=== PATIENT | female | born 1970 | race Hispanic/Latino ===

== ENCOUNTER 2017-11-24 13:20 | Emergency (ER) | payer BC, OTHER ==
[2017-11-24] MEDS ORDERED: MAGNESIUM SULFATE 2GM/50ML 2 GM/50 ML BAG IV ONE (13:29)
[2017-11-24] MEDS ORDERED: PROVENTIL IH ONE (13:30)
[2017-11-24] MEDS ORDERED: TYLENOL PO ONE (13:30)
[2017-11-24] MEDS ORDERED: ATROVENT IH ONE (13:30)
--- NOTE | 2017-11-24 13:41 | Emergency Department Report ---
ED Shortness of Breath HPI - General Chief Complaint: Dyspnea/Respdistress Stated Complaint: WHEEZING HX OF ASTHMA Time Seen by Provider: 11/24/17 13:28 Source: patient Mode of arrival: Ambulatory Limitations: No Limitations - History of Present Illness Initial Comments: 47-year-old female with a past medical history asthma presents to the hospital for complaints of shortness breath, cough, wheezing, and fever since last night. Patient has mild asthma that is typically exacerbated by cigarette smoke and respiratory illnesses. Last significant asthma attack was in 2014 and patient is not currently on any consistent asthma treatment. She had a fever 101.8 yesterday there broke with Motrin. She continues to have a nonproductive cough, wheezing, chest tightness, and fever. No previous histories of intubations. - Related Data Home Medications Medication Instructions Recorded Confirmed Last Taken Fluticasone/Vilanterol [Breo 1 each IH 05/27/16 05/27/16 06:30 Ellipta 100-25 Mcg INH] Previous Rx's Medication Instructions Recorded Last Taken Type Albuterol Sulfate [Albuterol 0.63% 0.63 mg IH Q4-6H PRN #90 ml 02/22/16 Unknown Rx NEBS] Benzonatate [Tessalon Perles] 100 mg PO Q8HR #30 capsule 02/22/16 Unknown Rx Ibuprofen [Motrin 800 MG tab] 800 mg PO Q8HR PRN #30 tablet 05/25/16 05/26/16 12 :00 Rx oxyCODONE /ACETAMINOPHEN [Percocet 1 - 2 tab PO Q6HR PRN #20 tablet 05/25/1610/01 09:10 Rx 5/325] ALBUTEROL Inhaler [ProAir HFA 1 puff IH TID PRN #1 inha 11/24/17 Unknown Rx Inhaler] ALBUTEROL NEB's [Proventil 0.083% 2.5 mg IH TID PRN #1 box 11/24/17 Unknown Rx NEBS] Azithromycin [Zithromax Z-JORDYN] 1 dose PO DAILY 5 Days day 11/24/17 Unknown Rx Prednisone [predniSONE 10 mg 10 mg PO .TAPER #1 tab.ds.pk 11/24/17 Unknown Rx (6-Day Pack, 21 Tabs)] guaiFENesin/CODEINE [Robitussin AC] 10 ml PO Q6HR PRN #20 udc 11/24/17 Unknown Rx Allergies Allergy/AdvReac Type Severity Reaction Status Date / Time No Known Allergies Allergy Verified 02/22/16 10:49 ED Review of Systems ROS: Stated complaint: WHEEZING HX OF ASTHMA Other details as noted in HPI Comment: All other systems reviewed and negative Other: Constitutional: + Fever Eyes: No eye pain visual changes or discharge ENT: No ear pain or throat pain Neck: Denies pain Respiratory: as per hpi Cardiovascular: Denies chest pain, GI: Denies abdominal pain, nausea, vomiting, diarrhea : Denies dysuria Musculoskeletal: Denies back pain. Chronic leg edema Skin: Denies rash, lesions, erythema Neurologic: Denies headache, numbness, weakness Psychiatric: Denies suicidal ideation, hallucinations ED Past Medical Hx - Past Medical History Hx Congestive Heart Failure: No Hx Diabetes: No Hx Asthma: Yes Hx COPD: No Hx HIV: No Additional medical history: Vaginal delivery x 3 - Surgical History Additional Surgical History: Tubaligation - Social History Smoking Status: Never Smoker Substance Use Type: None - Medications Home Medications: Home Medications Medication Instructions Recorded Confirmed Last Taken Type Albuterol Sulfate [Albuterol 0.63% 0.63 mg IH Q4-6H PRN #90 ml 02/22/16 Unknown Rx NEBS] Benzonatate [Tessalon Perles] 100 mg PO Q8HR #30 capsule 02/22/16 Unknown Rx Ibuprofen [Motrin 800 MG tab] 800 mg PO Q8HR PRN #30 tablet 05/25/16 05/26/16 12:00 Rx oxyCODONE /ACETAMINOPHEN [Percocet 1 - 2 tab PO Q6HR PRN #20 tablet 05/25/16 09:10 Rx 5/325] Fluticasone/Vilanterol [Breo 1 each IH 05/27/16 05/27/16 06:30 History Ellipta 100-25 Mcg INH] ALBUTEROL Inhaler [ProAir HFA 1 puff IH TID PRN #1 inha 11/24/17 Unknown Rx Inhaler] ALBUTEROL NEB's [Proventil 0.083% 2.5 mg IH TID PRN #1 box 11/24/17 Unknown Rx NEBS] Azithromycin [Zithromax Z-JORDYN] 1 dose PO DAILY 5 Days day 11/24/17 Unknown Rx Prednisone [predniSONE 10 mg 10 mg PO .TAPER #1 tab.ds.pk 11/24/17 Unknown Rx (6-Day Pack, 21 Tabs)] guaiFENesin/CODEINE [Robitussin AC] 10 ml PO Q6HR PRN #20 udc 11/24/17 Unknown Rx ED Physical Exam - General Limitations: No Limitations - Other Other exam information: General: No limitations, patient is alert in no acute distress Head exam: Atraumatic, normocephalic Eyes exam: Normal appearance ENT: Moist mucous membrane, normal oropharynx Neck exam: Normal inspection, full range of motion, no meningismus nontender Respiratory exam: Diminished bilateral breath sounds, no significant wheezing, no tachypnea or accessory muscle Cardiovascular: Normal rate and rhythm, normal heart sounds Abdomen: Soft, nondistended, and nontender, with normal bowel sounds, no rebound, or guarding Extremity: Full range of motion normal inspection no deformity, no calf tenderness, mild bilateral lower extremity edema Back: Normal Inspection, full range of motion, no tenderness Neurologic: Alert, oriented x3, cranial nerves intact, no motor or sensory deficit Psychiatric: normal affect, normal mood Skin: Warm, dry, intact ED Course Vital Signs 11/24/17 11/24/17 11/24/17 13:23 14:07 14:59 Temperature 100.4 F H Pulse Rate 104 H Pulse Rate [ 90 98 H Anterior Bilateral] Respiratory 18 Rate Respiratory 28 H 24 Rate [Anterior Bilateral] Blood Pressure 142/77 Blood Pressure [Left] O2 Sat by Pulse 96 Oximetry 11/24/17 11/24/17 16:53 17:22 Temperature 98.8 F Pulse Rate 101 H Pulse Rate [ Anterior Bilateral] Respiratory 20 22 Rate Respiratory Rate [Anterior Bilateral] Blood Pressure Blood Pressure 149/72 [Left] O2 Sat by Pulse 98 100 Oximetry - Reevaluation(s) Reevaluation #1: 11/24/17 17:51 tx with albuterol, atrovent, mag, solumedrol, azithromycin, and tylenol with improvement in symptoms ED Medical Decision Making - Lab Data Result diagrams: 11/24/17 15:25 11/24/17 15:25 Lab Results 11/24/17 11/24/17 11/24/17 Range/Units 15:25 15:25 15:25 WBC 7.9 (4.5-11.0) K/mm3 RBC 4.64 (3.65-5.03) M/mm3 Hgb 12.4 (10.1-14.3) gm/dl Hct 38.4 (30.3-42.9) % MCV 83 (79-97) fl MCH 27 L (28-32) pg MCHC 32 (30-34) % RDW 14.4 (13.2-15.2) % Plt Count 245 (140-440) K/mm3 Lymph % (Auto) 26.5 (13.4-35.0) % Parke % (Auto) 4.5 (0.0-7.3) % Eos % (Auto) 2.2 (0.0-4.3) % Baso % (Auto) 0.5 (0.0-1.8) % Lymph # 2.1 (1.2-5.4) K/mm3 Parke # 0.4 (0.0-0.8) K/mm3 Eos # 0.2 (0.0-0.4) K/mm3 Baso # 0.0 (0.0-0.1) K/mm3 Seg Neutrophils % 66.3 (40.0-70.0) % Seg Neutrophils # 5.2 (1.8-7.7) K/mm3 VBG pH (7.320-7.420) Sodium 137 (137-145) mmol/L Potassium 4.2 (3.6-5.0) mmol/L Chloride 98.3 (98-107) mmol/L Carbon Dioxide 23 (22-30) mmol/L Anion Gap 20 mmol/L BUN 15 (7-17) mg/dL Creatinine 0.6 L (0.7-1.2) mg/dL Estimated GFR > 60 ml/min BUN/Creatinine Ratio 25 % Glucose 137 H (65-100) mg/dL Lactic Acid 1.90 (0.7-2.0) mmol/L Calcium 9.0 (8.4-10.2) mg/dL 11/24/17 Range/Units 15:25 WBC (4.5-11.0) K/mm3 RBC (3.65-5.03) M/mm3 Hgb (10.1-14.3) gm/dl Hct (30.3-42.9) % MCV (79-97) fl MCH (28-32) pg MCHC (30-34) % RDW (13.2-15.2) % Plt Count (140-440) K/mm3 Lymph % (Auto) (13.4-35.0) % Parke % (Auto) (0.0-7.3) % Eos % (Auto) (0.0-4.3) % Baso % (Auto) (0.0-1.8) % Lymph # (1.2-5.4) K/mm3 Parke # (0.0-0.8) K/mm3 Eos # (0.0-0.4) K/mm3 Baso # (0.0-0.1) K/mm3 Seg Neutrophils % (40.0-70.0) % Seg Neutrophils # (1.8-7.7) K/mm3 VBG pH 7.336 (7.320-7.420) Sodium (137-145) mmol/L Potassium (3.6-5.0) mmol/L Chloride (98-107) mmol/L Carbon Dioxide (22-30) mmol/L Anion Gap mmol/L BUN (7-17) mg/dL Creatinine (0.7-1.2) mg/dL Estimated GFR ml/min BUN/Creatinine Ratio % Glucose (65-100) mg/dL Lactic Acid (0.7-2.0) mmol/L Calcium (8.4-10.2) mg/dL - EKG Data -: EKG Interpreted by Id EKG shows normal: sinus rhythm, axis (66), QRS complexes (81), ST-T waves (no stemi/t wave inv) Rate: tachycardia (103) - EKG Data When compared to previous EKG there are: no significant change - Radiology Data Radiology results: image reviewed (cxr: naf) - Medical Decision Making Positive improvement with ED treatment Will discharge on bronchodilators, steroids, and cough medicine Outpatient follow-up encouraged - Differential Diagnosis pneumonia, bronchitis, asthma, URI, influenza Critical Care Time: No Critical care attestation.: If time is entered above; I have spent that time in minutes in the direct care of this critically ill patient, excluding procedure time. ED Disposition Clinical Impression: Acute bronchitis with asthma Disposition: DC- TO HOME OR SELFCARE Is pt being admited?: No Does the pt Need Aspirin: No Condition: Stable Instructions: Acute Bronchitis (ED) Additional Instructions: Take the medication as prescribed and follow up with your doctor. Please return if symptoms worsen Prescriptions: ALBUTEROL Inhaler [ProAir HFA Inhaler] 1 puff IH TID PRN #1 inha PRN Reason: Wheezing ALBUTEROL NEB's [Proventil 0.083% NEBS] 2.5 mg IH TID PRN #1 box PRN Reason: Wheezing Azithromycin [Zithromax Z-JORDYN] 1 dose PO DAILY 5 Days day guaiFENesin/CODEINE [Robitussin AC] 10 ml PO Q6HR PRN #20 udc PRN Reason: Cough Prednisone [predniSONE 10 mg (6-Day Pack, 21 Tabs)] 10 mg PO .TAPER #1 tab.ds.pk Referrals: PRIMARY CARE, [Primary Care Provider] - 3-5 Days Forms: Work/School Release Form(ED) Time of Disposition: 18:11
[2017-11-24] MEDS ORDERED: ZITHROMAX 500 MG in NACL 0.9% 250ML 250 ML IV ONE (15:00)
[2017-11-24 16:10] LABS: Basophils % (Auto) 0.5 % (0.0-1.8); Eosinophils # (Auto) 0.2 K/mm3 (0.0-0.4); Eosinophils % (Auto) 2.2 % (0.0-4.3); Hematocrit 38.4 % (30.3-42.9); Hemoglobin 12.4 gm/dl (10.1-14.3); Lymphocytes # (Auto) 2.1 K/mm3 (1.2-5.4); Lymphocytes % (Auto) 26.5 % (13.4-35.0); Mean Corpuscular HGB Conc 32 % (30-34); Mean Corpuscular Hemoglobin 27 pg (28-32); Mean Corpuscular Volume 83 fl (79-97); Monocytes # (Auto) 0.4 K/mm3 (0.0-0.8); Monocytes % (Auto) 4.5 % (0.0-7.3); Red Blood Count 4.64 M/mm3 (3.65-5.03); Red Cell Distribution Width 14.4 % (13.2-15.2)
[2017-11-24 16:30] LABS: BUN/Creatinine Ratio 25; Blood Urea Nitrogen 15 mg/dL (7-17); Hemolysis Index 36
[2017-11-24 17:32] LABS: Platelet Count 245 K/mm3 (140-440)
--- NOTE | 2017-11-24 18:06 | XRay Report ---
FINAL REPORT EXAM: XR CHEST ROUTINE 2V HISTORY: sob, low grade fever TECHNIQUE: Frontal and lateral chest x-ray. PRIORS: None. FINDINGS: Cardiac and mediastinal silhouette within normal limits. Lungs are normally expanded, without significant vascular congestion. No focal consolidation, pleural effusion or apparent pneumothorax. Degenerative change in the thoracic spine. IMPRESSION: 1. No acute consolidation.
[2017-11-24 18:27] VITALS: BP 129/69
== END 2017-11-24 18:26 | disposition home or self-care (01) ==
LOC: ED 13:20
DX: J20.9 Acute bronchitis, unspecified (principal); J45.909 Unspecified asthma, uncomplicated
CPT/HCPCS: 36415; 71046; 80048; 82140; 82805; 85025; 87040; 93005; 93010; 96365; 96367; 96375; 99284; J0456; J2930; J3475; J7050

== ENCOUNTER 2019-01-28 08:44 | Outpatient (CLI) | payer BC ==
[2019-01-28 09:40] LABS: Alanine Aminotransferase 24 units/L (7-56); Albumin 4.3 g/dL (3.9-5); BUN/Creatinine Ratio 20; Blood Urea Nitrogen 14 mg/dL (7-17); Calcium 9.2 mg/dL (8.4-10.2); Chol/HDL Ratio 4.37 %; HDL Cholesterol 54 mg/dL (40-59); Hemolysis Index 30; LDL Cholesterol,Direct 178 mg/dL (50-130)
== END 2019-01-28 08:45 | disposition home or self-care (01) ==
LOC: LAB 08:44
PROVIDERS: ATTEND Internal Medicine
DX: R73.09 Other abnormal glucose (principal); J45.909 Unspecified asthma, uncomplicated; E66.9 Obesity, unspecified
CPT/HCPCS: 36415; 80053; 80061; 82306; 82607; 83036; 84443

== ENCOUNTER 2019-03-28 08:58 | Outpatient (CLI) | payer BC ==
--- NOTE | 2019-03-28 09:33 | Ultrasound Report ---
Spot compression magnification also a low density right breast followed by sonographic examination: Compared to. Findings: On spot magnification views of the density in the subareolar area is not clearly identified. Sonographic examination does not reveal cystic or solid mass. Impression: Probably benign density. Six-month followup right mammogram and if necessary sonogram recommended. BI-RADS CATEGORY: 3 = Probably benign ACR BI-RADS MAMMOGRAPHIC CODES: 0 = Needs additional imaging evaluation; 1 = Negative; 2 = Benign; 3 = Probably benign; 4 = Suspicious; 5 = Malignant; 6 = Known biopsy-proven malignancy COMMENT: 1. Dense breast tissue, i.e., adenosis, fibrocystic changes, etc., may obscure an underlying neoplasm. 2. Approximately 10% of cancers are not detected with mammography. 3. A negative mammography report should not delay biopsy if a clinically suspicious mass is present. COMMENT: Patient follow-up letters are generated in [employer].
== END 2019-03-28 08:59 | disposition home or self-care (01) ==
LOC: MAMMO 08:58
PROVIDERS: ATTEND Internal Medicine
DX: R92.8 Other abnormal and inconclusive findings on diagnostic imaging of breast (principal); J45.909 Unspecified asthma, uncomplicated; E66.9 Obesity, unspecified

== ENCOUNTER 2020-01-30 11:40 | Outpatient (CLI) | payer BC ==
--- NOTE | 2020-01-30 12:27 | XRay Report ---
CHEST PA AND LATERAL VIEWS INDICATION: [id number].[id number]. COMPARISON: 11/24/2017. FINDINGS: Support devices: None. Heart: Within normal limits. Lungs/Pleura: No consolidation or effusion. There is mild peribronchial cuffing. IMPRESSION: 1. Mild peribronchial cuffing which can be seen in setting of lower airways disease. No consolidation is seen. Signer Name: Uzair Lowe MD Signed: 01/30/2020 12:22 PM Workstation Name: [id number]
== END 2020-01-30 11:41 | disposition home or self-care (01) ==
LOC: XRAY 11:40
PROVIDERS: ATTEND Internal Medicine
DX: J40 Bronchitis, not specified as acute or chronic (principal)
CPT/HCPCS: 71046

== ENCOUNTER 2020-07-12 08:46 | Outpatient (CLI) | payer BC ==
[2020-07-12 09:33] LABS: Basophils % (Auto) 0.5 % (0.0-1.8); Eosinophils # (Auto) 0.2 K/mm3 (0.0-0.4); Eosinophils % (Auto) 2.3 % (0.0-4.3); Hematocrit 38.2 % (30.3-42.9); Hemoglobin 12.6 gm/dl (10.1-14.3); Lymphocytes # (Auto) 3.1 K/mm3 (1.2-5.4); Lymphocytes % (Auto) 32.7 % (13.4-35.0); Mean Corpuscular HGB Conc 33 % (30-34); Mean Corpuscular Volume 83 fl (79-97); Monocytes # (Auto) 0.5 K/mm3 (0.0-0.8); Monocytes % (Auto) 5.4 % (0.0-7.3); Platelet Count 273 K/mm3 (140-440); Red Blood Count 4.63 M/mm3 (3.65-5.03); Red Cell Distribution Width 14.6 % (13.2-15.2)
[2020-07-12 09:56] LABS: Alanine Aminotransferase 19 units/L (7-56); Albumin 4.1 g/dL (3.9-5); Blood Urea Nitrogen 14 mg/dL (7-17); Calcium 9.2 mg/dL (8.4-10.2); Chol/HDL Ratio 4.26 %; HDL Cholesterol 52 mg/dL (40-59); Hemolysis Index 3; LDL Cholesterol,Direct 161 mg/dL (50-130)
[2020-07-12 10:22] LABS: BUN/Creatinine Ratio 23
== END 2020-07-12 08:47 | disposition home or self-care (01) ==
LOC: LAB 08:46
PROVIDERS: ATTEND Internal Medicine
DX: Z00.00 Encounter for general adult medical examination without abnormal findings (principal); R73.03 Prediabetes; E78.5 Hyperlipidemia, unspecified; E55.9 Vitamin D deficiency, unspecified; Z13.21 Encounter for screening for nutritional disorder
CPT/HCPCS: 36415; 80053; 80061; 82306; 82607; 83036; 84443; 85025

== ENCOUNTER 2020-10-18 08:20 | Outpatient (CLI) | payer BC ==
--- NOTE | 2020-10-18 09:51 | Mammography Report ---
DIGITAL SCREENING MAMMOGRAM WITH TOMOSYNTHESIS WITH CAD, 10/18/2020 CLINICAL INFORMATION / INDICATION: Routine Screening Mammography. TECHNIQUE: Digital bilateral 2D and 3D mammography with tomosynthesis was obtained in the craniocaud al and mediolateral oblique projections. Computer-Aided Detection (CAD) analysis was used for interp retation of this study. COMPARISON: 02/08/2019 and priors FINDINGS: Breast Density: The breasts are heterogeneously dense, which may obscure small masses. No dominant mass, suspicious calcifications, or architectural distortion in the left breast. On cc view only in the right lateral breast, fairly superficially but roughly 5 cm lateral to the nip ple at approximately 8:00 to 10:00, a 5 mm new nodule is seen which probably is benign. IMPRESSION: New nodule on the right Follow up recommendation: Right breast ultrasound BI-RADS Category 0: Incomplete. Needs additional imaging evaluation and/or prior mammograms for laura rison. A "normal" or negative report should not discourage follow up or biopsy of a clinically significant f inding. A written summary of these findings will be mailed to the patient. The patient will be entered into a mammography reporting system which will generate a reminder letter for the patient's next appointmen t at the appropriate interval. The [employer] recommends yearly mammograms starting at age 40 and continuing as l blanca as a woman is in good health. Breast MRI is recommended for women with an approximate 20-25% or greater lifetime risk of breast cancer, including women with a strong family history of breast or ova julio c cancer or who have been treated for Hodgkin's disease. Signer Name: Juancarlos Rowe MD Signed: 10/18/2020 9:46 AM Workstation Name: [id number]
== END 2020-10-18 08:21 | disposition home or self-care (01) ==
LOC: SPVWC 08:20
PROVIDERS: ATTEND Obstetrics & Gynecology
DX: Z12.31 Encounter for screening mammogram for malignant neoplasm of breast (principal); N63.10 Unspecified lump in the right breast, unspecified quadrant
CPT/HCPCS: 77063; 77067

== ENCOUNTER 2020-12-17 09:17 | Emergency (ER) | payer OTHER, BC ==
[2020-12-17] MEDS ORDERED: KETOROLAC 60 MG/2 ML INJ IM ONE (09:34)
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
--- NOTE | 2020-12-17 10:08 | XRay Report ---
Lumbar spine 3 views INDICATION: Back pain FINDINGS: Alignment appears normal. Endplate changes are seen at several levels. Sacrum and sacroilia c joints appear normal. Mild striation at L4 could represent hemangioma. IMPRESSION: Discogenic degenerative change. Probable hemangioma at L4. Signer Name: Gabriel Lara MD Signed: 12/17/2020 10:03 AM Workstation Name: [id number]
[2020-12-17 11:18] VITALS: BP 130/70
== END 2020-12-17 11:24 | disposition home or self-care (01) ==
LOC: ED 09:17
DX: M54.5 Low back pain (principal); J45.909 Unspecified asthma, uncomplicated; Z98.51 Tubal ligation status; Z79.899 Other long term (current) drug therapy; Z79.2 Long term (current) use of antibiotics; V49.49XA Driver injured in collision with other motor vehicles in traffic accident, initial encounter; Y93.89 Activity, other specified; Y92.410 Unspecified street and highway as the place of occurrence of the external cause; Y99.8 Other external cause status
CPT/HCPCS: 72100; 96372; 99283; J1885